=== PATIENT | female | born 1985 | race Caucasian/White ===

== ENCOUNTER 2018-08-06 08:44 | Inpatient (IN) | payer OTHER ==
[2018-08-06] MEDS ORDERED: LACTATED RINGERS 2,000 ML ONE (09:17)
--- NOTE | 2018-08-06 09:19 | History and Physical Report ---
History of Present Illness Date of examination: 08/06/18 Date of admission: 08/06/18 08:44 Chief complaint: Scheduled primary History of present illness: 32-year-old at 39+4 weeks presents for primary , she is a [facility] patient. 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 denies: smoking, alcohol abuse, prescription drug abuse, IV drug use - Obstetrical History Expected Date of Delivery: 08/09/18 Actual Gestation: 39 Week(s) 4 Day(s) : 2 Para: 1 Review of Systems Constitutional: no fever, no chills, no fatigue, no weakness Eyes: no diplopia Cardiovascular: no chest pain, no orthopnea, no syncope, no lightheadedness, no shortness of breath, no dyspnea on exertion, no paroxysmal nocturnal dyspnea, no high blood pressure, no leg edema, no decreased exercise tolerance Respiratory: no cough, no cough with sputum, no shortness of breath, no dyspnea on exertion Gastrointestinal: no abdominal pain, no nausea, no vomiting, no heartburn, no indigestion Genitourinary: no vaginal bleeding, no vaginal discharge, no leakage of fluid, no contractions - Physical Exam Cardiovascular: Regular rate, Normal S1, Normal S2 Lungs: Positive: Clear to auscultation, Normal air movement Abdomen: Positive: normal appearance, soft. Negative: distention, tenderness, guarding, rigidity Genitourinary (Female): Positive: normal external genitalia Uterus: Positive: enlarged (EFW ~ 3600). Negative: tender Adnexa: both: normal Extremities: Positive: normal - Obstetrical FHR: category 1 Results All other labs normal. Assessment and Plan A: 32-year-old at 39+4 weeks with breech presentation here for primary C- section P: -Patient has been consented -Proceed with primary once available - Patient Problems (1) 39 weeks gestation of Current Visit: Yes Status: Acute (2) Breech presentation Current Visit: Yes Status: Acute
[2018-08-06] MEDS ORDERED: ANCEF/STERILE WATER 2 GM/20 ML 2 GM/20 ML SYRINGE IV NR (10:00)
[2018-08-06] MEDS ORDERED: PITOCin/NS 20 UNIT/1000ML DRIP 20 UNITS/1,000 ML BAG IV SCH ×2 (10:00→14:00)
[2018-08-06 10:24] LABS: Basophils % (Auto) 0.3 % (0.0-1.8); Eosinophils # (Auto) 0.1 K/mm3 (0.0-0.4); Eosinophils % (Auto) 0.8 % (0.0-4.3); Hematocrit 32.4 % (30.3-42.9); Lymphocytes # (Auto) 1.8 K/mm3 (1.2-5.4); Lymphocytes % (Auto) 22.3 % (13.4-35.0); Mean Corpuscular HGB Conc 34 % (30-34); Mean Corpuscular Hemoglobin 29 pg (28-32); Mean Corpuscular Volume 85 fl (79-97); Monocytes # (Auto) 0.6 K/mm3 (0.0-0.8); Monocytes % (Auto) 7.9 % (0.0-7.3); Platelet Count 304 K/mm3 (140-440); Red Blood Count 3.82 M/mm3 (3.65-5.03); Red Cell Distribution Width 13.7 % (13.2-15.2)
[2018-08-06] MEDS: LACTATED RINGERS 1,000 ML IV SCH (10:46)
--- NOTE | 2018-08-06 10:56 | Anesthesia Consultation ---
Anesthesia Consult and Med Hx Date of service: 08/06/18 - Airway Anesthetic Teeth Evaluation: Good ROM Head & Neck: Adequate Mental/Hyoid Distance: Adequate Mallampati Class: Class II Intubation Access Assessment: Probably Good - Pre-Operative Health Status ASA Pre-Surgery Classification: ASA2 Proposed Anesthetic Plan: Epidural, Spinal - Pulmonary Hx Asthma: No COPD: No Hx Pneumonia: No - Cardiovascular System Hx Hypertension: No - Central Nervous System Hx Seizures: No Hx Psychiatric Problems: No - Endocrine Hx Renal Disease: No Hx End Stage Renal Disease: No Hx Hypothyroidism: No Hx Hyperthyroidism: No - Hematic Hx Anemia: No Hx Sickle Cell Disease: No - Other Systems Hx Alcohol Use: No
[2018-08-06] MEDS ORDERED: DILAUDID IV PRN (10:57)
[2018-08-06] MEDS ORDERED: NARCAN 0.4 MG/1 ML IV PRN ×2 (10:57→13:15)
[2018-08-06] MEDS ORDERED: PHENERGAN PR PRN (10:57)
[2018-08-06] MEDS ORDERED: PHENERGAN PO PRN (10:57)
[2018-08-06] MEDS ORDERED: ZOFRAN IV PRN (10:57)
[2018-08-06] MEDS ORDERED: BENADRYL IV PRN (10:57)
--- NOTE | 2018-08-06 10:57 | Anesthesia Day of Surgery ---
Anesthesia Day of Surgery - Day of Surgery Patient Examined: Yes Patient H&P Reviewed: Yes Patient is NPO: Yes
[2018-08-06] MEDS ORDERED: SODIUM CHLORIDE FLUSH SYRINGE 10 ML IV SCH (11:00)
[2018-08-06] MEDS ORDERED: PEPCID IV ONE (11:38)
[2018-08-06] MEDS ORDERED: BICITRA ONE (11:38)
[2018-08-06] MEDS ORDERED: REGLAN ONE (11:38)
[2018-08-06] MEDS ORDERED: TORADOL IV ONE (11:57)
[2018-08-06] MEDS ORDERED: NACL 0.9% IR ONE (12:28)
[2018-08-06] MEDS ORDERED: WATER FOR IRRIG STERILE IR ONE (12:28)
[2018-08-06] MEDS ORDERED: LACTATED RINGERS 1,000 ML ONE (12:35)
[2018-08-06] MEDS ORDERED: NEO SYNEPHRINE/NS Syringe(OR USE) IV ONE (12:35)
[2018-08-06] MEDS ORDERED: ASTRAMORPH PF 10MG/10ML ONE (12:51)
[2018-08-06] MEDS ORDERED: ZOFRAN ONE (13:00)
[2018-08-06] MEDS ORDERED: TUCKS PAD TP PRN (13:15)
[2018-08-06] MEDS ORDERED: MILK OF MAGNESIA PO PRN (13:15)
[2018-08-06] MEDS ORDERED: SENOKOT PO PRN (13:15)
[2018-08-06] MEDS ORDERED: ANUCORT-HC PR PRN (13:15)
[2018-08-06] MEDS ORDERED: TYLENOL PO PRN (13:15)
[2018-08-06] MEDS ORDERED: TORADOL IV PRN (13:15)
[2018-08-06] MEDS ORDERED: LANSINOH TP PRN (13:15)
[2018-08-06] MEDS ORDERED: MYLICON PO PRN (13:15)
--- NOTE | 2018-08-06 13:15 | Operative Report ---
Operative Report Operative Report: DATE: 08/06/2018 PREOPERATIVE DIAGNOSIS: 32-year-old at 39+4 weeks, breech presentation, morbid obesity POSTOP DIAGNOSIS: As above plus transverse presentation back down NAME OF PROCEDURE: Primary low transverse section SURGEON: MARTÍN METCALF MD OVEREDGE MACHINE OPERATOR: Anita ANESTHESIA: Combined spinal epidural EBL: 700 mL PATHOLOGY SPECIMEN: None URINE OUTPUT: 1 50 mL FINDINGS: Female in transverse position, back down, time of delivery 12: 34, Apgars 7 and 8, infant weight 6 lbs. 7 oz. or 2917 g, normal uterus and tubes bilaterally DESCRIPTION OF PROCEDURE: Bedside sono confirmed breech presentation. After informed consent, patient was taken to the operating room where she was prepped and draped in a sterile fashion. Pfannestial incision was performed 2 cm above the pubic symphysis. This was then carried down to the underlying rectus fascia which was scored in the midline. The fascial incision was extended laterally with the use of Cheema scissors, anterior leaf was then grasped with Bernice's elevated dissected sharply and bluntly off the underlying rectus. In a similar fashion the inferior leaf was grasped elevated dissected sharply and bluntly off the underlying rectus. The rectus was in the midline and the peritoneal cavity was entered without difficulty. After good visualization of the bladder the peritoneal layer was extended up and down; bladder blade was placed in the patient's pelvic cavity, bladder flap was created without difficulty. A hysterotomy incision was then performed with clear amniotic fluid noted. Infant in transverse presentation with arm presenting was noted. Arm was pushed back into cavity and infant converted to breech. Infant was then delivered in the usual manner; cord was clamped cut and infant was handed over to waiting NICU staff. The placenta was then delivered intact, the uterus was then exteriorized cleared of all clots and debris. Her hysterotomy incision was then closed in a running locked fashion with 0 Vicryl on a CTX; using the same suture were able to imbricate the initial layer. The uterus was then returned to the patient's pelvic cavity; the peritoneal edges were grasped with hemostats and Zahida's; irrigation was used to clear the gutters of all clots and debris. Tisseel hemostatic agent was applied copiously over the hysterotomy incision. The peritoneal layer was closed in a running fashion with 3-0 Vicryl; the rectus was reapproximated with a single [id number] stitch. The fascia was then closed in a running fashion with 0 Vicryl; the subcutaneous layer was reapproximated with a single [id number] stitch. The skin was then closed in a subcuticular manner with 4-0 Monocryl. She tolerated the procedure well lap and instrument counts were correct 2, she did receive 2 grams of Ancef prior to the procedure. She is transferred to PACU in stable condition.
[2018-08-06] MEDS ORDERED: SODIUM CHLORIDE FLUSH SYRINGE 10 ML IV NR (14:00)
[2018-08-06] MEDS: D5LR 1,000 ML IV SCH (20:03)
[2018-08-07 00:32] LABS: Hematocrit 25.3 % (30.3-42.9); Hemoglobin 8.5 gm/dl (10.1-14.3)
[2018-08-07] MEDS: D5LR 1,000 ML IV SCH (04:04)
[2018-08-07] MEDS: PRENATAL VITAMIN PO SCH (11:21)
[2018-08-07] MEDS: FEOSOL PO SCH (11:21)
--- NOTE | 2018-08-07 11:24 | Progress Note ---
Assessment and Plan - Patient Problems (1) S/P primary low transverse Current Visit: Yes Status: Acute Plan to address problem: POD 1 - stable Continue routine postop orders Ambulation encouraged, as tolerated Abdominal binder ordered Anticipate discharge in 24-48 hours (2) Anemia in puerperium, baby delivered during current episode of care Current Visit: Yes Status: Acute Plan to address problem: Asymptomatic Continue iron therapy Subjective - Subjective Date of service: 08/07/18 Principal diagnosis: POD #1, s/p Primary LTCS Patient reports: appetite normal, voiding normally, pain well controlled, ambulating normally, no dizzy ambulation, no flatus, no bowel movement : doing well, nursing well Objective - Vital Signs Latest vital signs: Vital Signs Temp Pulse Resp BP BP Pulse Ox 08/07/18 08:05 98.8 F 98 H 16 112/69 95 08/07/18 04:30 98.7 F 66 16 117/78 08/07/18 00:00 98.7 F 69 18 117/78 08/06/18 23:48 20 08/06/18 19:30 98.6 F 74 18 113/58 08/06/18 16:23 98.5 F 133 H 18 108/58 96 08/06/18 15:00 99.1 F 92 H 18 120/70 98 08/06/18 14:21 74 14 120/67 99 08/06/18 14:06 69 13 119/64 100 08/06/18 13:51 68 16 109/59 100 08/06/18 13:36 69 18 107/55 100 08/06/18 13:31 66 14 112/61 100 08/06/18 13:26 77 16 109/54 99 08/06/18 13:21 97.5 F L 94 H 18 116/50 99 Intake and Output 08/06/18 08/07/18 08/07/18 23:59 07:59 15:59 Intake Total 1300 240 Output Total 1350 800 Balance -1350 500 240 Intake: IV 1000 D5lr 1,000 ml @ 125 mls/ 1000 hr IV DIRECT JORDYN Rx#: [id number] Oral 240 Intake, Free Water 300 Output: Urine 900 800 Indwelling Catheter 900 Void 800 Emesis 450 Other: Total, Intake Amount 240 Total, Output Amount 300 800 # Voids Void 1 1 Estimated Blood Loss 700 - Exam Abdomen: Present: normal appearance, soft Vulva: both: normal Uterus: Present: normal, firm, fundal height at umbilicus Extremities: Present: normal Incision: Present: normal, dry, dressed - Labs Labs: Abnormal lab results 08/06/18 08/06/18 08/07/18 Range/Units 12:54 12:58 00:17 Hgb 8.5 L (10.1-14.3) gm/dl Hct 25.3 L D (30.3-42.9) % POC ABG pH 7.293 L 7.321 L (7.35-7.45) POC ABG pO2 18 L 18 L (80-105)
[2018-08-07] MEDS ORDERED: BOOSTRIX IM ONE (13:16)
[2018-08-07] MEDS ORDERED: M-M-R II VACCINE SUB-Q ONE (13:16)
[2018-08-07] MEDS: MOTRIN PO PRN (13:25)
[2018-08-07] MEDS: PERCOCET 5/325 PO PRN (21:57)
[2018-08-08] MEDS: MOTRIN PO PRN ×2 (04:53→10:58)
[2018-08-08] MEDS: PERCOCET 5/325 PO PRN (07:51)
--- NOTE | 2018-08-08 10:23 | Progress Note ---
Assessment and Plan - Patient Problems (1) S/P primary low transverse Current Visit: Yes Status: Acute Plan to address problem: POD 2 - stable Continue routine postop orders Ambulation encouraged, as tolerated Abdominal binder ordered Discharge home today (2) Anemia in puerperium, baby delivered during current episode of care Current Visit: Yes Status: Acute Plan to address problem: Asymptomatic Continue iron therapy Subjective - Subjective Principal diagnosis: POD #2, s/p Primary LTCS Interval history: See H&P and delivery note Patient reports: appetite normal, voiding normally, pain well controlled, flatus , ambulating normally, no bowel movement [place]: doing well, bottle feeding Objective - Vital Signs Latest vital signs: Vital Signs Temp Pulse Resp BP BP Pulse Ox 08/08/18 08:29 97.9 F 72 16 109/71 96 08/08/18 04:53 20 08/08/18 00:00 98.4 F 64 18 104/75 08/07/18 21:57 20 08/07/18 16:10 98.6 F 83 18 115/76 98 08/07/18 11:40 98.8 F 83 18 133/78 97 Intake and Output 08/07/18 08/08/18 08/08/18 23:59 07:59 15:59 Intake Total 360 Balance 360 Intake: Intake, Free Water 360 Other: # Voids Void 1 - Exam Breasts: Present: normal Cardiovascular: Present: Regular rate, Normal S1, Normal S2, No murmurs Lungs: Present: Clear to auscultation, Normal air movement Abdomen: Present: normal appearance, tenderness (as expected), normal bowel sounds. Absent: distention Vulva: both: normal Uterus: Present: firm, fundal height at umbilicus Extremities: Present: normal Deep Tendon Reflex Grade: Normal +2 Incision: Present: normal (Pressure dressing removed. LTI, closed with SQ sutures and steri strips. CDI. No drainage), dry, intact
--- NOTE | 2018-08-08 10:25 | Discharge Summary ---
Providers - Providers Date of Admission: 08/06/18 08:44 Date of discharge: 08/08/18 Attending physician: JOSUÉ LUNA MD Primary care physician: JOSUÉ LUNA MD Hospitalization Reason for admission: IUP at term Delivery: Procedure: primary low transverse (Breech presentation) Procedure details: See operative note Other procedures: none complications: none Discharge diagnosis: IUP at term delivered [place] baby: female Condition at discharge: Good Disposition: DC-01 TO HOME OR SELFCARE Plan - Provider Discharge Summary Activity: routine, no sex for 6 weeks, no heavy lifting 4 weeks, no strenuous exercise Diet: routine Instructions: routine Additional instructions: [] Smoking cessation referral if applicable(refer to patient education folder for contact #) [] Refer to [facility] Booklet Call your doctor immediately for: * Fever > 100.5 * Heavy vaginal bleeding ( >1 pad per hour) * Severe persistent headache * Shortness of breath * Reddened, hot, painful area to leg or breast * Drainage or odor from incision. * Keep incision clean and dry at all times and follow doctor's instructions regarding bathing/showering - Follow up plan Follow up: JOSUÉ LUNA MD [Primary Care Provider] - 7 Days
[2018-08-08] MEDS: FEOSOL PO SCH (10:54)
[2018-08-08] MEDS: PRENATAL VITAMIN PO SCH (10:54)
[2018-08-08 13:11] VITALS: BP 125/71
== END 2018-08-08 13:25 | disposition home or self-care (01) | DRG 765 ==
LOC: APU 08:44 → OB 15:29
PROVIDERS: ADMIT Obstetrics & Gynecology; ATTEND Obstetrics & Gynecology
PROC: 10D00Z1 Extraction of Products of Conception, Low, Open Approach (ICD-10-PCS; principal; 2018-08-06)
PROC: 4A033R1 Measurement of Arterial Saturation, Peripheral, Percutaneous Approach (ICD-10-PCS; 2018-08-06)
PROC: 3E0234Z Introduction of Serum, Toxoid and Vaccine into Muscle, Percutaneous Approach (ICD-10-PCS; 2018-08-07)
DX: O64.1XX0 Obstructed labor due to breech presentation, not applicable or unspecified (principal); D62 Acute posthemorrhagic anemia; O90.81 Anemia of the puerperium; O99.214 Obesity complicating childbirth; E66.01 Morbid (severe) obesity due to excess calories; Z3A.39 39 weeks gestation of pregnancy; Z37.0 Single live birth; Z68.33 Body mass index [BMI] 33.0-33.9, adult; Z23 Encounter for immunization
CPT/HCPCS: 36415; 82803; 85014; 85018; 85025; 86592; 86850; 86900; 86901; 99211; C9250; G0463; J0690; J1885; J2274; J2370; J2405; J2590; J2765; J7120; J7121; Q0169